=== PATIENT | female | born 1965 | race Caucasian/White ===

== ENCOUNTER 2021-07-07 11:16 | Emergency (ER) | payer OTHER ==
[2021-07-07 11:29] VITALS: BP 174/87
--- NOTE | 2021-07-07 11:44 | ED Physician Documentation ---
History of Present Illness - Stated complaint Stated Complaint: R FT PX - Chief complaint Chief Complaint: Ext Problem - Additonal information Additional information: 55-year-old female presents emergency department for evaluation of acute right foot pain that began hurting yesterday morning. Thinks she may have bumped her foot on the bed frame but is unsure. Concerned she may have a stress fracture. She has some mild erythema on the medial portion of the foot above the arch and is unable to bear weight. No history of similar in the past. No fevers or red streaking. Review of Systems Constitutional: denies: Fever, Chills Eyes: reports: Reviewed and negative Ears: reports: Reviewed and negative Nose: reports: Reviewed and negative Cardiac: reports: Reviewed and negative Respiratory: reports: Reviewed and negative GI: reports: Reviewed and negative : reports: Reviewed and negative Skin: reports: Reviewed and negative Musculoskeletal: reports: Joint pain PD PAST MEDICAL HISTORY - Allergies Allergies/Adverse Reactions: Allergies Allergy/AdvReac Type Severity Reaction Status Date / Time No Known Drug Allergies Allergy Verified 07/07/21 11:29 PD ED PE EXPANDED - Extremities Extremities: Right foot (Tenderness medially just above the arch with mild erythema. No deformity. Unable to bear weight on the foot. Reduced dorsi and plantar flexion secondary to pain. However full range of motion of the ankle. 2+ DP pulse.) Results - Vitals Vitals: Vital Signs - 24 hr 07/07/21 11:24 Temperature 36.5 C Heart Rate 74 Respiratory 16 Rate Blood Pressure 174/87 H O2 Saturation 99 - Rads (name of study) right foot Radiology: Final report received (No acute fracture or dislocation.) PD MEDICAL DECISION MAKING - ED course Complexity details: reviewed results, re-evaluated patient, d/w patient ED course: 55-year-old female presents emergency department for evaluation of acute right foot pain that began yesterday. She thinks she may have bumped her foot on the bed during middle the night but is unsure. She has some mild erythema and swelling medially just above the arch but no deformity. She has difficulty bearing weight. No history previous injury to this foot. The x-ray does not show any acute fracture or dislocation. Though there is mild erythema of the skin there is no fluctuance or open sores. No red streaking or fevers. My suspicion for infectious etiology or gout is rather low. Location of the pain is also a little higher than we would expect for a plantar fasciitis. I suspect that this may be a mild contusion but we are not certain at this time. Patient does have prescription for meloxicam which she has avoided taking because she wanted to make sure that this was not a broken bone. I have encouraged her to ice the foot and take the meloxicam. She did ask for a walking boot which we have agreed to. If her symptoms or not markedly better in 7 to 10 days foot should be reimaged. Departure - Departure Disposition: 01 Home, Self Care Clinical Impression: Right foot pain Condition: Stable Record reviewed to determine appropriate education?: Yes Instructions: ED Contusion Lower Extr Ch Comments: Annalise the x-ray of your foot does not show any broken bones. Your exam is also not consistent with infection or gout. It is possible that you do have a contusion or simple bruising if you bumped it inadvertently the other night. We are giving you a walking boot. It is okay to continue to take the meloxicam. With most simple contusions I would expect the symptoms to be better in 7 to 10 days. If your symptoms are not better your foot should be link-rayed. You can also consider referral to a examining officer. Return to the emergency department sooner if you have increased swelling, redness fevers milky drainage or red streaking.
--- NOTE | 2021-07-07 12:30 | XRAY Report ---
PROCEDURE: Foot 3 View RT INDICATIONS: pain medially; ? fx TECHNIQUE: 3 views of the foot were acquired. COMPARISON: None FINDINGS: Bones: No fractures or dislocations. No suspicious bony lesions. Soft tissues: No tibiotalar joint effusion. Achilles tendon appears normal. IMPRESSION: No visualized acute fracture or dislocation. However, occult injury cannot be excluded. Recommend calvin rt interval imaging follow-up in 7-10 days as clinically indicated for additional evaluation. Reviewed by: Palmira Rubio MD on 07/07/2021 12:28 PM PDT Approved by: Palmira Rubio MD on 07/07/2021 12:28 PM PDT Station ID: [id number]
== END 2021-07-07 13:00 | disposition home or self-care (01) ==
LOC: ED 11:16
DX: M79.671 Pain in right foot (principal)
CPT/HCPCS: 99281; 99283